=== PATIENT | male | born 1960 | race Caucasian/White ===

== ENCOUNTER 2024-06-15 05:40 | Emergency (ER) | payer BC, OTHER ==
[2024-06-15] MEDS ORDERED: Aspirin Chewable 81 MG TAB ONE (06:11)
[2024-06-15 06:14] LABS: #Monocytes 0.6 thou/uL (0.11-0.59); #Neutrophils 5.7 thou/uL (1.40-6.50); %Basophils 1.6 % (0.0-1.0); %Eosinophils 1.7 % (0.0-10.0); %Lymphocytes 18.3 % (21.0-51.0); %Monocytes 7.6 % (0.0-10.0); %Neutrophils 70.8 % (42.0-75.0); Hematocrit 48.1 % (42.0-52.0); Hemoglobin 15.7 g/dL (14.0-18.0); Manual Diff?? NO; Mean Corpuscular HGB CONC 32.6 g/dL (32.0-36.0); Mean Corpuscular Hemoglobin 29.1 pg (27.0-31.0); Mean Corpuscular Volume 89.3 fl (78.0-98.0); Mean Platelet Volume 7.4 fL (7.4-10.4); Platelet Count 199 10x3/uL (130-400); RBC Distribution Width 12.1 % (11.5-14.5); Red Blood Cell (RBC) Count 5.39 mill/uL (4.70-6.10)
[2024-06-15 06:15] LABS: #Basophils 0.1 thou/uL (0.0-0.2); #Eosinophils 0.1 thou/uL (0.0-0.7); MDiff Complete? YES
[2024-06-15 06:20] LABS: #Lymphocytes 1.5 thou/uL (1.20-3.40)
[2024-06-15 06:29] LABS: ALT (SGPT) 36 U/L (8-55); AST (SGOT) 27 U/L (5-34); Albumin 4.2 g/dL (3.4-4.8); Alkaline Phosphatase 97 U/L (40-110); Anion Gap 14 mmol/L (10-20); BUN (Urea Nitrogen) 11 mg/dL (8.4-25.7); Bilirubin, Total 0.4 mg/dL (0.2-1.2); Calc. Creatinine Clearance 0 mL/min (70-130); Calcium 9.5 mg/dL (7.8-10.44); Carbon Dioxide 23 mmol/L (23-31); Chloride 110 mmol/L (98-107); Estimated GFR 93; Glucose 119 mg/dL (80-115); Potassium 3.6 mmol/L (3.5-5.1); Protein, Total 7.2 g/dL (5.8-8.1); Sodium 143 mmol/L (136-145)
[2024-06-15 06:31] LABS: Troponin I Less than 0.010 ng/mL (< 0.028)
[2024-06-15 08:22] LABS: Troponin I Less than 0.010 ng/mL (< 0.028)
== END 2024-06-15 08:33 | disposition home or self-care (01) ==
LOC: BURERS 05:40
DX: R07.89 Other chest pain (principal); R07.2 Precordial pain; I10 Essential (primary) hypertension; F17.220 Nicotine dependence, chewing tobacco, uncomplicated; Z79.899 Other long term (current) drug therapy
CPT/HCPCS: 36415; 71045; 80053; 83880; 84484; 85025; 93005